=== PATIENT | female | born 1970 | race Caucasian/White ===

== ENCOUNTER → 2017-09-15 11:42 | Outpatient (CLI) | payer OTHER, SELFPAY ==
--- NOTE | 2017-09-15 | DI.MG.S_ITS ---
BILATERAL DIGITAL SCREENING MAMMOGRAM 3D/2D WITH CAD: 09/15/2017 CLINICAL: Routine screening. Family history of breast cancer. Comparison is made to exams dated: 01/17/2012 mammogram, 02/17/2010 mammogram, and 02/02/2010 mammogram - [facility]. The tissue of both breasts is extremely dense, which lowers the sensitivity of mammography. Current study was also evaluated with a Computer Aided Detection (CAD) system. There is a biopsy clip in the left breast. No significant masses, calcifications, or other findings are seen in either breast. There has been no significant interval change. IMPRESSION: NEGATIVE There is no mammographic evidence of malignancy. A 1 year screening mammogram is recommended. This exam was interpreted at Station ID: [id number]. NOTE: For mammograms, a report in lay terms will be sent to the patient. Approximately 15% of breast malignancies will not be visualized mammographically. In the management of a palpable breast mass, a negative mammogram must not discourage biopsy of a clinically suspicious lesion. Electronically Signed By: Pool [email or web address]/meño:09/15/2017 14:48:56 letter sent: Normal Exam ACR BI-RADS Category 1: Negative [id number]
== END ==
PROVIDERS: Visit Provider Midwife
DX: Z12.31 Encounter for screening mammogram for malignant neoplasm of breast (principal); Z80.3 Family history of malignant neoplasm of breast
CPT/HCPCS: 77063; 77067

== ENCOUNTER → 2023-06-22 13:55 | Outpatient (CLI) | payer BC, SELFPAY ==
--- NOTE | 2023-06-22 14:04 | DI.CT.S_ITS ---
PROCEDURE: CT FOOT LEFT WITHOUT CON INDICATIONS: Hallux valgus bilat feet - left TECHNIQUE: Noncontrast 1-1.5 mm axial sections acquired from above the tibiotalar joint to the bottom of the calcaneus, with coronal and sagittal reformats. COMPARISON: None. FINDINGS: Image quality: Excellent. Bones: No acute osseous fracture. Severe hallux valgus is seen. There are moderate degenerative changes of the 1st metatarsophalangeal joint. Cystic changes are seen at the medial aspect of the metatarsal head. Multifocal chronic osseous erosions are seen throughout the metatarsal heads. There is lateral subluxation of the medial and lateral hallux sesamoids with associated degenerative changes. Scattered degenerative changes are seen in the interphalangeal joints of the toes. Severe degenerative changes are seen at the 2nd tarsometatarsal joint with remodeling of the articular surfaces. Moderate to severe 3rd tarsometatarsal degenerative changes. Mild degenerative changes of the remaining tarsometatarsal joints. No suspicious osseous lesion. Tiny plantar calcaneal enthesophyte. Soft tissues: Moderate size fluid collection plantar to the 5th metatarsal head measuring up to 28 x 23 x 6 mm is suspicious for an adventitial bursal effusion. Similar appearing smaller fluid collections are seen plantar to the 3rd and 4th metatarsal heads. There is mild nonspecific soft tissue edema plantar to the 1st metatarsal head and mild medial bunion. The articular cartilages, ligaments, tendons are not well evaluated with CT. IMPRESSION: 1. Severe left hallux valgus. Lateral subluxation of the hallux sesamoids. 2. 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 Mild scattered degenerative changes throughout the interphalangeal joints of the toes. 3. Severe 2nd tarsometatarsal osteoarthrosis with chronic osseous remodeling. Moderate to severe 3rd tarsometatarsal osteoarthrosis and for mild degenerative changes at the remaining tarsometatarsal joints. 4. Chronic osseous erosions are seen throughout the metatarsal heads, which are nonspecific although an underlying inflammatory arthritis is not excluded. Approved by: Awais Britton M.D. on 06/23/2023 at 9:23
--- NOTE | 2023-06-22 14:04 | DI.CT.S_ITS ---
PROCEDURE: CT FOOT RIGHT WITHOUT CON INDICATIONS: Hallux valgus bilat feet - right TECHNIQUE: Noncontrast 1-1.5 mm axial sections acquired from above the tibiotalar joint to the bottom of the calcaneus, with coronal and sagittal reformats. COMPARISON: None. FINDINGS: Image quality: Excellent. Bones: No acute osseous fracture. There is severe hallux valgus. Metallic focus at the medial aspect of the 1st proximal phalanx is postsurgical in nature. There is lateral subluxation of the medial and lateral hallux sesamoids. Moderate degenerative changes are seen at the 1st metatarsophalangeal joint. There are multiple chronic appearing osseous erosions throughout the metatarsal heads. Mild scattered degenerative changes are seen in the interphalangeal joints of the toes. There is dorsal subluxation of the 3rd and 4th metatarsophalangeal joints. Chronic posttraumatic versus degenerative changes are seen at the dorsal aspect of the talonavicular joint. Small plantar calcaneal enthesophyte. Soft tissues: Fluid collection is seen plantar and lateral to the 4th metatarsal head measuring 23 x 17 x 30 mm. Mild nonspecific subcutaneous edema is seen plantar to the remaining metatarsal heads. The articular cartilages, ligaments, tendons are not well evaluated with CT. The visualized musculature is normal in bulk. IMPRESSION: 1. Severe hallux valgus with lateral subluxation of the hallux sesamoids. 2. 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 3. Dorsal subluxation of the 3rd and 4th metatarsophalangeal joints. 4. Chronic osseous erosions throughout the metatarsal heads are of uncertain etiology, although an underlying chronic inflammatory arthritis is not excluded. 5. Moderately-sized fluid collection plantar to the 4th metatarsal head is suspicious for an adventitial bursal effusion versus less likely large joint effusion or other nonspecific fluid collection. Approved by: Awais Britton M.D. on 06/23/2023 at 9:21
== END ==
PROVIDERS: PCP Midwife; Referring Provider Podiatrist Foot Surgery; Visit Provider Podiatrist Foot Surgery
DX: S93.141A Subluxation of metatarsophalangeal joint of right great toe, initial encounter (principal); S93.144A Subluxation of metatarsophalangeal joint of right lesser toe(s), initial encounter; S93.142A Subluxation of metatarsophalangeal joint of left great toe, initial encounter; M20.11 Hallux valgus (acquired), right foot; M20.12 Hallux valgus (acquired), left foot; M05.771 Rheumatoid arthritis with rheumatoid factor of right ankle and foot without organ or systems involvement; M05.772 Rheumatoid arthritis with rheumatoid factor of left ankle and foot without organ or systems involvement; M19.072 Primary osteoarthritis, left ankle and foot; M19.071 Primary osteoarthritis, right ankle and foot; M85.872 Other specified disorders of bone density and structure, left ankle and foot; M85.871 Other specified disorders of bone density and structure, right ankle and foot
CPT/HCPCS: 73700

== ENCOUNTER → 2023-08-03 10:08 | Outpatient (CLI) | payer BC, SELFPAY ==
[2023-08-03 11:57] LABS: Add Manual Diff / Slide Review NO; Basophils Absolute Auto 0 /uL (0-100); Basophils Percent Auto 0.9 % (0-2); Eosinophils Absolute Auto 200 /uL (0-450); Eosinophils Percent Auto 4.1 % (2-4); Hematocrit 40.1 % (36-46); Hemoglobin 13.9 g/dL (12.0-16.0); Lymphocytes Absolute Auto 1400 /uL (1100-4500); Lymphocytes Percent Auto 27.1 % (25-40); Mean Corpuscular HGB Conc 34.7 % (30-36); Mean Corpuscular Hemoglobin 31.1 PG (26-34); Mean Corpuscular Volume 89.5 fL (80-100); Monocytes Absolute Auto 600 /uL (0-900); Monocytes Percent Auto 11.7 % (3-14); Neutrophils Absolute Auto 3000 /uL (1500-7000); Neutrophils Percent Auto 56.2 % (50-75); Platelet Count 237 X10^3/uL (150-400); Red Blood Cell Count 4.48 X10^6/uL (4.0-5.2); Red Cell Distribution Width 13.3 % (11.6-14.8); White Blood Cell Count 5.3 X10^3/uL (4.5-11.0)
[2023-08-03 12:31] LABS: Alanine Aminotransferase 27 IU/L (<35); Albumin 4.6 g/dL (3.5-5.0); Albumin Globulin Ratio 1.6 (1.0-2.8); Alkaline Phosphatase 85 U/L (38-126); Aspartate Aminotransferase 28 IU/L (14-36); BUN Creatinine Ratio 24.6 (6-22); Bilirubin Total 0.7 mg/dL (0.2-1.3); Blood Urea Nitrogen 14 mg/dL (7-17); Calcium 8.9 mg/dL (8.4-10.2); Carbon Dioxide 27 mmol/L (22-32); Chloride 106 mmol/L (98-107); Cholesterol 223 mg/dL (140-199); Estimated Glomerular Filt Rate > 60 mL/min (>60); Globulin 2.8 g/dL (1.7-4.1); Glucose 91 mg/dL (70-100); HDL Cholesterol 63 mg/dL (40-60); HEMOLYSIS < 15 (0-50); LDL Cholesterol Calculated 139 mg/dL (<100); Sodium 138 mmol/L (137-145); Total Protein 7.4 g/dL (6.3-8.2); Triglycerides 104 mg/dL (35-150)
[2023-08-03 12:32] LABS: Potassium 3.4 mmol/L (3.4-5.1)
== END ==
LOC: LAB 10:09
PROVIDERS: PCP Family Medicine; Referring Provider Family Medicine; Visit Provider Family Medicine
DX: Z01.812 Encounter for preprocedural laboratory examination (principal); M06.9 Rheumatoid arthritis, unspecified
CPT/HCPCS: 36415; 80053; 80061; 85025